=== PATIENT | male | born 1980 ===

== ENCOUNTER 2018-09-06 08:04 | Emergency (ER) | payer BC ==
[2018-09-06 08:07] VITALS: BMI 37.3
--- NOTE | 2018-09-06 08:46 | C.PDOC ---
History Of Present Illness 38 y/o male presents to the ER complaining of cramps in left leg and mild change in sensation in left foot.Patient is also complaining of polyuria and polydipsia. Patient would like to know if he has diabetes. Denies having fever,chills, CP,SOB, nausea, and vomiting. Time Seen by Provider: 09/06/18 08:19 Chief Complaint (Nursing): Lower Extremity Problem/Injury History Per: Patient History/Exam Limitations: no limitations Current Symptoms Are (Timing): Still Present Severity: Moderate Past Medical History Reviewed: Historical Data, Nursing Documentation, Vital Signs Vital Signs: Last Vital Signs Temp 99.1 F 09/06/18 08:07 Pulse 78 09/06/18 08:07 Resp 18 09/06/18 08:07 BP 155/94 H 09/06/18 08:07 Pulse Ox 96 09/06/18 08:07 Primary Care Provider: FAMILY PROVIDER,NO - Medical History PMH: No Chronic Diseases Surgical History: No Surg Hx Family History: States: No Known Family Hx - Social History Hx Alcohol Use: No Hx Substance Use: No - Immunization History Hx Tetanus Toxoid Vaccination: No Hx Influenza Vaccination: No Hx Pneumococcal Vaccination: No Review Of Systems Except As Marked, All Systems Reviewed And Found Negative. Constitutional: Negative for: Fever, Chills Musculoskeletal: Positive for: Other (cramping sensation in leg and foot) Physical Exam - Physical Exam Appears: Non-toxic, No Acute Distress, Other (morbidly obese) Skin: Normal Color, Warm, Dry Head: Atraumatic, Normacephalic Eye(s): bilateral: Normal Inspection Nose: Normal Oral Mucosa: Moist Neck: Supple Chest: Symmetrical Cardiovascular: Rhythm Regular Respiratory: Normal Breath Sounds, No Rales, No Rhonchi, No Wheezing Gastrointestinal/Abdominal: Normal Exam, Soft, No Tenderness, No Guarding, No Rebound Extremity: Normal ROM, Other (obese lower extremities without edema) Neurological/Psych: Oriented x3, Normal Speech Gait: Steady ED Course And Treatment O2 Sat by Pulse Oximetry: 96 (RA) Pulse Ox Interpretation: Normal Medical Decision Making Medical Decision Making: new onset DM no peripheral neuropathy Glucose Fingerstick 292 Start Metformin empirically diet/weight loss opt f/u. Disposition Doctor Will See Patient In The: Office Counseled Patient/Family Regarding: Studies Performed, Diagnosis - Disposition Referrals: Location [facility] [Outside] [facility] [Outside] [facility] [Outside] [facility] [Outside] Marcos Daly MD [Staff Provider] - Disposition: HOME/ ROUTINE Disposition Time: 08:46 Condition: GOOD Additional Instructions: start Metformin 1000 mg twice a day with meals never take Metformin without taking food at the same time Check your finger stick/glucose PRIOR to BREAKFAST AND DINNER NEVER AFTER eating write in your booklet Bring to your next Clinic visit Diabetic diet Weight loss Outpatient eval for Sleep Apnea Call Dr. Daly's office for an appt Prescriptions: Glucose Meter [Blood Glucose Monitoring System] 1 dev XX PRN PRN #1 dev PRN Reason: diabetes Lancets/Blood Glucose Strips [Fora [id number] Strp-Lnct] 1 each MC BID #60 combo..pkg MetFORMIN [glucoPHAGE] 1,000 mg PO BID #60 tab Instructions: Type 2 Diabetes Forms: [employer] (Slovak) - Clinical Impression Clinical Impression: Leg cramps, New onset type 2 diabetes mellitus - Scribe Statement The provider has reviewed the documentation as recorded by the Mayraibe Darryl Moreno Provider Attestation: All medical record entries made by the Scribe were at my direction and personally dictated by me. I have reviewed the chart and agree that the record accurately reflects my personal performance of the history, physical exam, medical decision making, and the department course for this patient. I have also personally directed, reviewed, and agree with the discharge instructions and disposition.
[2018-09-06 09:13] VITALS: BP 129/85; PULSE 70; RESP 20; TEMP 98.3
[2018-09-06 13:28] VITALS: O2SAT 96
== END 2018-09-06 09:13 | disposition home or self-care (01) ==
LOC: C.ER 08:04
DX: R25.2 Cramp and spasm (principal); E11.9 Type 2 diabetes mellitus without complications